=== PATIENT | male | born 1950 | race Caucasian/White ===

== ENCOUNTER 2016-07-10 13:59 | Emergency (ER) | payer MEDICARE ==
[~2016-07-10 13:59] MED LIST: EPINEPHrine 1:10,000 1 MG/10 ML Syringe ONE
--- NOTE | 2016-07-10 14:16 | PCM.PRNOTE ---
- Free Text/Narrative Note: Date of Service - 07/10/2016 Proposed procedure - emergent endotracheal intubation Indication - acute respiratory failure Kyle arrived to the emergency room via ambulance in cardiac arrest with acute respiratory failure. Emergent endotracheal intubation was warranted to help Protect the airway. the patient was being bagged with a oral airway in place. After achieving maximal achievable saturations bagging was halted and the oral airway was removed. The vocal cords were directly visualized using a Tracey blade. A size 7 endotracheal tube was passed through the vocal cords and the stylette was removed. The balloon was inflated and the tube was secured at 23 centimeters at the lips. Direct auscultation revealed equal bilateral breath sounds. Chest x-ray to determine appropriate placement is pending at the time of dictation. Elias Moon MD
--- NOTE | 2016-07-10 14:28 | EDM.PDOC ---
ED HPI CPR - General Chief Complaint: CPR in Progress Stated Complaint: none Time Seen by Provider: 07/10/16 14:16 Source: Reports: EMS History Limitations: Reports: Uncooperative - History of Present Illness INITIAL COMMENTS - FREE TEXT/NARRATIVE: 66-year-old gentleman presents emergency department today CPR in progress via EMS services he was asystole at the time presentation, brief history prior he has a known history of end-stage liver disease was evaluated at the [facility] in [facility] to the [facility] in [place]. While in route he became unresponsive with agonal breathing subsequently he went into cardiac arrest with asystole on the monitor one IV was in place in route he was given a total of 2 mg of epinephrine in route chest compressions were performed manually Bradley did not fit his body habitus. At the time he arrived chest compressions were in progress IV had failed he was brought to the trauma bay and continued CPR efforts total time of CPR in route 20 minutes Past Medical History Gastrointestinal History: Reports: Cirrhosis, Jaundice, Other (see below) (end- stage liver disease) ED ROS GENERAL - Review of Systems Review Of Systems: Unable To Obtain (unresponsive) ED EXAM, CPR - Physical Exam Exam: See Below (this is a) Text/Narrative:: GCS 3, CPR in progress manual chest compressions course of the code please see code sheet for details no further IV was established elected to proceed to IO which was established in the left tibial region code continued for another 20 minutes while in the ED multiple chest compression providers were switched out approximately every 2 minutes he was given one more milligram of epinephrine I O. with a flush multiple rhythm checks continued to show asystole without any change advanced airway was placed intubation performed by Dr. Moon please see his note for details, tube placement confirmed via auscultation of the chest ventilation was adequate again no response remained in asystole, next bedside ultrasound was performed and demonstrated no cardiac activity elected to stop the code with at 14:07 Departure - Departure Time of Disposition: 14:33 Disposition: 20 Condition: undetermined Clinical Impression: Asystole Forms: ED Department Discharge - Assessment/Plan Plan: Assessment Acuity = acute Site and laterality = cardiac arrest with asystole complicated patient with end- stage liver disease and now with hyperkalemia Etiology = unknown etiology Manifestations = expiration Location of injury = in route of Hospital transferred Lab values = none Plan in the organ procurement has started eye bank has been contacted This note was dictated using [employer] voice recognition software please call with any questions.
== END 2016-07-10 19:15 | disposition expired ==
LOC: JP.ED 13:59
DX: I46.9 Cardiac arrest, cause unspecified (principal)
CPT/HCPCS: 31500; 92950; 99284; J0171